=== PATIENT | female | born 1995 | race Asian ===

== ENCOUNTER 2018-09-25 07:46 | Outpatient (CLI) | payer OTHER ==
[~2018-09-25] VITALS: Ht 162.6 cm; Wt 63.5 kg
[2018-09-25] MEDS ORDERED: CT SWABBABLE VALVE TRANS SET 1 EA INFUS.SET MC ONE (10:18)
[2018-09-25] MEDS ORDERED: IV NS 0.9% 250 ML IV ONE ×2 (10:18→11:20)
[2018-09-25] MEDS ORDERED: IOHEXOL-350 100 ML VIAL IV ONE ×2 (10:18→12:13)
[2018-09-25] MEDS ORDERED: NITROGLYCERIN 0.4 MG/TAB BOTTLE SL ONE (11:00)
[2018-09-25] MEDS ORDERED: IV NS 0.9% 500 ML IV PRN (11:00)
[2018-09-25] MEDS ORDERED: METOPROLOL TARTRATE INJ 5 MG/5 ML AMPUL IVP ONE (11:00)
--- NOTE | 2018-09-25 11:40 | NUR ---
JADA NOTES 1100 RECEIVED PT AWAKE, A/OX4. PT CONNECTED TO MONITOR. VS WNL. HR 62. DENIES ANY CHEST PAIN. NO RESPIRATORY DISTRESS NOTED. PER DR GUTIERREZ, DO NOT GIVE METOPROLOL SINCE HR IS ON LOW 60S. WILL PROCEED WITH CTA ORDERED. PROTOCOL FOLLOWED. [address] GUTIERREZ THAT PT'S HR WENT UP TO 80-90S SOON CONTRAST WAS INJECTED. ORDERED TO REPEAT PROCEDURE. GIVE NS 500ML BOLUS AND METOPROLOL PER PROTOCOL. WILL CLOSELY MONITOR Addendum: 09/25/18 at 1241 by GLORIA WHALEN RN 1232 PROCEDURE DONE. VITAL SIGNS STABLE. PT REMAINS A/OX4. DENIES CHEST PAIN. NO RESPIRATORY DISTRESS NOTED. Addendum: 09/25/18 at 1248 by GLORIA WHALEN RN 1247 PT LEFT VIA AMBULANCE BACK TO [facility]. PT A/OX4. DENIES CHEST PAIN. NO RESPIRATORY DISTRESS NOTED. NO SOB NOTED. LET IN STABLE CONDITION.
[2018-09-25] MEDS ORDERED: IV NS 0.9% 500 ML IV ONE ×2 (11:41→12:00)
[2018-09-25] MEDS ORDERED: METOPROLOL TARTRATE INJ 5 MG/5 ML AMPUL ONE (11:50)
[2018-09-25 12:43] VITALS: BP 111/51
== END 2018-09-25 23:59 | disposition home or self-care (01) ==
LOC: CT 07:46
PROVIDERS: ATTEND Internal Medicine
DX: R07.9 Chest pain, unspecified (principal)
CPT/HCPCS: 75574; A4606; J3490; J7040; J7050 ×3; Q9967 ×2